=== PATIENT | female | born 1935 | race Two or more races ===

== ENCOUNTER 2022-02-21 11:08 | Emergency (ER) | payer OTHER ==
[~2022-02-21] VITALS: Ht 154.9 cm; Wt 53.1 kg
[~2022-02-21 11:08] MED LIST: ATORVASTATIN CA20 MG PO; CELEBREX200MG PO; HORIZANT300 MG PO; JANUVIA100 MG PO; KETO10TA2 PO; LEVOTHYROXINE25 MCG PO; LIPITOR20 MG PO; NEURONTIN300 MG PO
== END 2022-02-21 14:32 | disposition home or self-care (01) ==
LOC: ER 11:08
DX: S42.291A Other displaced fracture of upper end of right humerus, initial encounter for closed fracture (principal); S09.90XA Unspecified injury of head, initial encounter; W18.30XA Fall on same level, unspecified, initial encounter; Y93.89 Activity, other specified; Y92.017 Garden or yard in single-family (private) house as the place of occurrence of the external cause; Y99.9 Unspecified external cause status